=== PATIENT | male | born 1980 | race Caucasian/White ===

== ENCOUNTER 2019-12-22 15:08 | Emergency (ER) | payer OTHER ==
[~2019-12-22] VITALS: Ht 177.8 cm; Wt 90.7 kg
[2019-12-22 17:06] VITALS: BP 130/71
== END 2019-12-22 17:06 | disposition home or self-care (01) ==
LOC: M.ERS 15:08
DX: F15.10 Other stimulant abuse, uncomplicated (principal); F41.9 Anxiety disorder, unspecified

== ENCOUNTER 2020-01-01 01:40 | Emergency (ER) | payer OTHER ==
[~2020-01-01] VITALS: Ht 177.8 cm; Wt 90.7 kg
[2020-01-01 03:21] LABS: AMP/METHAMP POSITIVE (Negative); BARBITURATES Negative (Negative); BENZODIAZEPINES Negative (Negative); COCAINE Negative (Negative); METHADONE Negative (Negative); OPIATES Negative (Negative); PCP Negative (Negative); THC Negative (Negative)
[2020-01-01 03:40] VITALS: BP 121/70
== END 2020-01-01 03:40 | disposition home or self-care (01) ==
LOC: M.ERS 01:40
PROVIDERS: Emergency Medicine
DX: F15.10 Other stimulant abuse, uncomplicated (principal)